=== PATIENT | male | born 1970 | race Caucasian/White ===

== ENCOUNTER 2021-07-07 16:52 | Emergency (ER) | payer OTHER, SELFPAY ==
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
[2021-07-07 16:57] VITALS: BP 145/93; PULSE 76; O2SAT 99
[2021-07-07 17:10] VITALS: BP 130/92; PULSE 71; RESP 18; TEMP 36.3; O2SAT 99
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
== END 2021-07-07 18:27 | disposition home or self-care (01) ==
LOC: ANHED 18:19
PROVIDERS: Emergency Provider Emergency Medicine
DX: S16.1XXA Strain of muscle, fascia and tendon at neck level, initial encounter (principal); F32.A Depression, unspecified; M16.12 Unilateral primary osteoarthritis, left hip; M47.812 Spondylosis without myelopathy or radiculopathy, cervical region; M47.816 Spondylosis without myelopathy or radiculopathy, lumbar region; M47.814 Spondylosis without myelopathy or radiculopathy, thoracic region; V44.5XXA Car driver injured in collision with heavy transport vehicle or bus in traffic accident, initial encounter
CPT/HCPCS: 72125; 72128; 72131; 73502; 73610; 99284